=== PATIENT | male | born 1945 | race Caucasian/White ===

== ENCOUNTER → 2016-09-16 | Outpatient (CLI) | payer MEDICARE, OTHER ==
[~2016-09-16] MED LIST: ASPIRIN325 MG PO; BREO ELLIPTA 11 EACH INH; IPRAT-ALBUT 0.5-3 ML INH; ISOSORBIDE MONO30 MG PO; LEVAQUIN500 MG PO; LIPITOR TAB 1010 MG PO; MEDROL DOSEPAK 24 MG PO; METOPROLOL TART50 MG PO
[2016-09-16 10:46] LABS: HEMOGLOBIN 17.3 gm/dl (14.0-17.5); RED BLOOD COUNT 5.4 M/UL (4.20-5.50); WHITE BLOOD COUNT 8.8 K/UL (4.5-11.0)
[2016-09-16 11:10] LABS: BUN/CREATININE RATIO 22 (0-10)
== END ==
LOC: EXRD 09:44 → LAB 09:44
PROVIDERS: Internal Medicine
DX: Z00.00 Encounter for general adult medical examination without abnormal findings (principal); Z51.81 Encounter for therapeutic drug level monitoring; Z12.5 Encounter for screening for malignant neoplasm of prostate; I25.10 Atherosclerotic heart disease of native coronary artery without angina pectoris; E78.5 Hyperlipidemia, unspecified
CPT/HCPCS: 36415; 80053; 80061; 84443; 85025; G0103